=== PATIENT | female | born 1965 | race African-American/Black ===

== ENCOUNTER 2022-09-04 20:53 | Emergency (ER) | payer OTHER, MEDICAID ==
[~2022-09-04] VITALS: Ht 165.1 cm; Wt 61.0 kg
[2022-09-05 02:43] LABS: BASOPHILS % 0.9 % (0.0-2.0); EOSINOPHILS % 2.2 % (0.0-5.0); HEMATOCRIT. 36.6 % (36.0-48.0); HEMOGLOBIN. 12.4 g/dL (12.0-16.0); LYMPHOCYTES % 38.3 % (20.0-50.0); MEAN CORPUSCULAR VOLUME 85.6 fL (81.0-99.0); MEAN PLATELET VOLUME 10.3 fl (7.4-10.4); MONOCYTES % 13.4 % (2.0-8.0); NEUTROPHILS % 45.2 % (40.0-76.0); PLATELET 218 x1000/uL (130-400); RED BLOOD CELL COUNT 4.28 mill/uL (4.2-5.4)
[2022-09-05] MEDS ORDERED: CYCLOBENZAPRINE 10MG TABLET PO ONE (02:45)
[2022-09-05] MEDS ORDERED: ASPIRIN 81MG TABLET PO ONE (02:45)
[2022-09-05 02:46] LABS: CHLORIDE 100 mEq/L (98-107)
[2022-09-05] MEDS ORDERED: ACET-2708 MT (03:13)
[2022-09-05] MEDS ORDERED: CYCL10TA21 MT (03:13)
[2022-09-05 03:32] VITALS: BP 126/87
== END 2022-09-05 03:34 | disposition home or self-care (01) ==
LOC: ER 20:53
DX: S16.1XXA Strain of muscle, fascia and tendon at neck level, initial encounter (principal); V49.49XA Driver injured in collision with other motor vehicles in traffic accident, initial encounter; Y93.89 Activity, other specified; Y92.89 Other specified places as the place of occurrence of the external cause; Y99.8 Other external cause status; J45.909 Unspecified asthma, uncomplicated; F17.290 Nicotine dependence, other tobacco product, uncomplicated; Z98.890 Other specified postprocedural states; M79.641 Pain in right hand; M79.642 Pain in left hand; R07.89 Other chest pain
CPT/HCPCS: 36415; 71045; 80053; 84484; 85025; 93005; 99285

== ENCOUNTER 2024-01-12 01:01 | Emergency (ER) | payer OTHER, MEDICAID ==
[~2024-01-12 01:01] MED LIST: ACET-2708 MT; CYCL10TA21 MT
[2024-01-12 01:25] VITALS: PULSE 104
== END 2024-01-12 02:31 | disposition left against medical advice (07) ==
LOC: ER 01:01
DX: R10.30 Lower abdominal pain, unspecified (principal); Z53.21 Procedure and treatment not carried out due to patient leaving prior to being seen by health care provider

== ENCOUNTER 2024-01-15 22:14 | Emergency (ER) | payer BC, MEDICAID ==
[~2024-01-15] VITALS: Ht 165.1 cm; Wt 56.0 kg
[2024-01-15 22:23] VITALS: O2SAT 100
[2024-01-16 00:44] LABS: CLARITY URINE CLEAR (CLEAR); COLOR URINE YELLOW (YELLOW); GLUCOSE URINE NEGATIVE (NEGATIVE); KETONES URINE NEGATIVE (NEGATIVE); LEUKOCYTE ESTERASE URINE 1+ (NEGATIVE); NITRITE URINE POSITIVE (NEGATIVE); OCCULT BLOOD URINE NEGATIVE (NEGATIVE); PH URINE 5.5 (4.5-8.0); PROTEIN URINE NEGATIVE (NEGATIVE); SPECIFIC GRAVITY URINE 1.019 (1.005-1.030)
[2024-01-16] MEDS ORDERED: NITR100C MT (00:49)
[2024-01-16] MEDS ORDERED: ACETAMINOPHEN 325MG TABLET PO ONE (01:00)
[2024-01-16 01:03] VITALS: BP 120/80; PULSE 80; RESP 16; TEMP 98.3
[2024-01-16 02:35] LABS: SQUAMOUS EPITHELIAL CELL URINE FEW /lpf (RARE/1+)
[2024-01-16 02:36] LABS: BACTERIA URINE 3+; RBC URINE 0-2 /hpf (0-2)
== END 2024-01-16 01:03 | disposition home or self-care (01) ==
LOC: ER 22:14
DX: N39.0 Urinary tract infection, site not specified (principal); J45.909 Unspecified asthma, uncomplicated; Z98.890 Other specified postprocedural states
CPT/HCPCS: 81003; 99283